=== PATIENT | male | born 1995 | race Two or more races ===

== ENCOUNTER 2016-09-20 12:23 | Emergency (ER) | payer OTHER ==
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
[2016-09-20] MEDS ORDERED: IBUPROFEN 600 MG TAB PO ONE ×2 (12:33→12:45)
[2016-09-20] MEDS ORDERED: HYDROCODONE/APAP 5/325 TAB ONE (12:33)
[2016-09-20 12:45] VITALS: TEMP 98.4
[2016-09-20] MEDS ORDERED: LETS SOLN TOPICAL 1 EA SYR TP ONE (12:45)
[2016-09-20] MEDS ORDERED: HYDROCODONE/APAP 5/325 TAB PO ONE (12:45)
--- NOTE | 2016-09-20 13:13 | DX ---
2 views right clavicle Reason for examination: Pain following trauma. Findings: There is a linear osseous fragment on the superior margin of the distal clavicle consistent with a small avulsion fracture. There is widening of the acromioclavicular joint consistent with a g rade 2 AC separation. Impression: Grade 2 AC separation with associated clavicular avulsion fracture.
--- NOTE | 2016-09-20 13:15 | DX ---
3 Views Right Shoulder. Clinical Indications: Pain following trauma. Findings: The humeral head is normally located in the glenoid fossa. A right clavicular avulsion fra cture is noted. No other fracture is identified. The glenohumeral alignment is normal. Impression: Negative for shoulder fracture. A right clavicular study is reported separately.
[2016-09-20 13:18] VITALS: BP 130/78; PULSE 78; RESP 14; O2SAT 97
== END 2016-09-20 14:08 | disposition home or self-care (01) ==
DX: S43.101A Unspecified dislocation of right acromioclavicular joint, initial encounter (principal); S40.811A Abrasion of right upper arm, initial encounter; S50.811A Abrasion of right forearm, initial encounter; S60.512A Abrasion of left hand, initial encounter; V18.4XXA Pedal cycle driver injured in noncollision transport accident in traffic accident, initial encounter; Y92.410 Unspecified street and highway as the place of occurrence of the external cause; Y93.55 Activity, bike riding
CPT/HCPCS: A4565

== ENCOUNTER 2017-03-03 23:24 | Emergency (ER) | payer OTHER ==
[2017-03-03 23:30] VITALS: BP 121/83; PULSE 87; RESP 16; TEMP 98.2; O2SAT 96
--- NOTE | 2017-03-03 23:48 | EDPHY ---
H & P Stated Complaint: redness and swelling to right foot x4-5 days no trauma HPI/ROS: CHIEF COMPLAINT: Right toe redness and swelling HISTORY OF PRESENT ILLNESS: Patient complains of 4 days history of right toe redness and swelling. It is surrounded the right great toenail at 1st. Discharged to track up the toe. [id number] pain that is worse with palpation and movement. No radiating pain. No swelling of the IP joint. No fever or chills. No numbness or tingling. No weakness. No trauma or injury. He felt that there was an abscess, thus he tried to drain it at home yesterday. No improvement. There has been no drainage of any kind. No history of gout personally or in his family. No alcohol intake. No other associated complaints or modifying factors. REVIEW OF SYSTEMS: Ten systems reviewed and are negative unless otherwise noted in the HPI EXAMINATION General Appearance: Alert, no distress Cardiovascular: Pulses normal throughout. Symmetric DP and PT pulses at 2+. Brisk cap refill Neurological: A&O, sensory symmetric, strength symmetric. Normal proprioception of the great toe. Skin: Warm and dry, no rash. Mild erythema surrounding the right great toenail. There is no palpable fluctuance. No purulence. No appreciable abscess. Extremities: Mild tenderness surrounding the right great toenail. Range of motion is fully intact without limitation. Psychiatric: Mood and affect normal DIFFERENTIAL DIAGNOSES: Including but not limited to cellulitis, paronychia, felon, gout MDM: 11:45 p.m. Superficial cellulitis of the dorsum of the right foot. There is no evidence of gout on examination as the IP joint is spared. There is no palpable fluctuance or drainable abscess at this time. I will put him on Bactrim and Keflex for treatment of the possibility of cellulitis. Would like him to be re- evaluated in 48 hours here or with primary care physician. Return sooner for any worsening symptoms. He is comfortable with this plan. He will be discharged home stable condition. ED Precautions: Worsening pain. Erythema, edema, cyanosis, pallor, paresthesia or anesthesia. SUPERVISION: This patient was independently evaluated without direct examination by the attending physician. Case was discussed with attending physician. Source: Patient Exam Limitations: No limitations - Personal History Current Tetanus Diphtheria and Acellular Pertussis (TDAP): Unsure - Medical/Surgical History Hx Asthma: No Hx Chronic Respiratory Disease: No Hx Diabetes: No Hx Cardiac Disease: No Hx Renal Disease: No Hx Cirrhosis: No Hx Alcoholism: No Hx HIV/AIDS: No Hx Splenectomy or Spleen Trauma: No Other PMH: denies - Social History Smoking Status: Never smoked Constitutional: Initial Vital Signs Temperature (C) 98.2 F 03/03/17 23:28 Heart Rate 87 03/03/17 23:28 Respiratory Rate 16 03/03/17 23:28 Blood Pressure 121/83 H 03/03/17 23:28 O2 Sat (%) 96 03/03/17 23:28 O2 Delivery Mode Room Air Allergies/Adverse Reactions: No Known Allergies Allergy (Unverified 09/20/16 12:36) Home Medications: Medication Instructions Recorded Ibuprofen [Motrin] 800 mg PO Q8 #20 tab 09/20/16 Cephalexin [Keflex (*)] 500 mg PO TID #30 cap 03/03/17 Sulfamethox/Tmp 800/160 mg 2 tab PO BID 10 Days 03/03/17 [Bactrim Ds] Medical Decision Making - Data Points Medications Given: Discontinued Medications Cephalexin (Keflex 500 Mg Prepack#4) 1 btl TAKEHOME EDNOW ONE PRN Reason: Protocol Stop: 03/03/17 23:50 Last Admin: 03/04/17 00:01 Dose: 1 btl Trimethoprim/Sulfamethoxazole (Bactrim Ds) 2 ea PO EDNOW ONE PRN Reason: Protocol Stop: 03/03/17 23:50 Last Admin: 03/04/17 00:01 Dose: 2 ea Departure - Departure Disposition: Home, Routine, Self-Care Clinical Impression: Cellulitis of toe of right foot Condition: Good Instructions: Cephalexin (By mouth), Sulfamethoxazole/Trimethoprim (By mouth), Cellulitis (ED) Additional Instructions: 1. Antibiotics as discussed for 10 days 2. Re-evaluation in 48 hours here or with primary care physician 3. Return to the ER sooner for any worsening symptoms, fever, warmth to the joint Referrals: NONE *PRIMARY CARE P,. [Primary Care Provider] - As per Instructions Dorian Bae DO [Medical Doctor] - As per Instructions Physician,Emergency DeptMD [Medical Doctor] - As per Instructions Prescriptions: Cephalexin [Keflex (*)] 500 mg PO TID #30 cap Sulfamethox/Tmp 800/160 mg [Bactrim Ds] 2 tab PO BID 10 Days
[2017-03-03] MEDS ORDERED: CEPHALEXIN 500MG PREPACK#4 BTL TAKEHOME ONE (23:49)
[2017-03-03] MEDS ORDERED: SULFAMETHOX/TMP 800/160 MG 1 TAB PO ONE (23:49)
== END 2017-03-04 00:09 | disposition home or self-care (01) ==
DX: L03.115 Cellulitis of right lower limb (principal)

== ENCOUNTER 2017-03-05 13:36 | Emergency (ER) | payer OTHER ==
[2017-03-05 13:43] VITALS: RESP 16
--- NOTE | 2017-03-05 15:49 | EDPHY ---
H & P Stated Complaint: Toe still inflammed;has taken 3 daoses of Keflex,none of Bactrim HPI/ROS: Chief complaint: Right great toe infection History of present illness: This is a 21-year-old male who presents to the emergency department for right great toe infection. Patient was seen 2 days ago and diagnosed with an infection. He was started on Keflex and Bactrim. He has been taking the Keflex as prescribed but has not started the Bactrim as of yet. He feels has gotten slightly worse, he is concerned there is something that needs to be drained. He denies other associated signs or symptoms including no redness, swelling or warmth extending up onto the foot, no red streaking up the leg, no abnormal coolness or paresthesias in the toe. - Personal History Current Tetanus Diphtheria and Acellular Pertussis (TDAP): Yes - Medical/Surgical History Hx Asthma: No Hx Chronic Respiratory Disease: No Hx Diabetes: No Hx Cardiac Disease: No Hx Renal Disease: No Hx Cirrhosis: No Hx Alcoholism: No Hx HIV/AIDS: No Hx Splenectomy or Spleen Trauma: No Other PMH: denies - Social History Smoking Status: Never smoked - Physical Exam Exam: General: Alert, nontoxic Skin: Erythema and edema to the dorsum of the right great toe most pronounced around the edge of the nail, no extension up onto the foot, no red streaking up the leg Musculoskeletal: Patient is actively flexing extending his right great toe and I am able to passively flex and extend it without discomfort Vascular: Capillary refill brisk in the right great toe Neurologic: Sensation intact in the right great toe Constitutional: Initial Vital Signs Temperature (C) 36.7 C 03/05/17 13:41 Heart Rate 73 03/05/17 13:41 Respiratory Rate 16 03/05/17 13:41 Blood Pressure 125/88 H 03/05/17 13:41 O2 Sat (%) 96 03/05/17 13:41 O2 Delivery Mode Room Air Allergies/Adverse Reactions: No Known Allergies Allergy (Verified 03/05/17 13:41) Home Medications: Medication Instructions Recorded Ibuprofen [Motrin] 800 mg PO Q8 #20 tab 09/20/16 Cephalexin [Keflex (*)] 500 mg PO TID #30 cap 03/03/17 Sulfamethox/Tmp 800/160 mg 2 tab PO BID 10 Days 03/03/17 [Bactrim Ds] Medical Decision Making Procedures: Procedure: Paronychia drainage. The patient's paronychia was located on the right great toe. I obtained verbal consent from the patient to drain the paronychia who was informed about the possibility of bleeding and pain. The paronychia was incised with a scalpel and a moderate amount of purulent drainage was expressed. I irrigated the wound. The patient tolerated the procedure well. The procedure was performed by myself. ED Course/Re-evaluation: Patient seen under the supervision of my secondary supervising physician Dr. Marino Guzman. Patient presents to the emergency department concerned he has a persistent infection on his right great toe. Does appear to have a paronychia. It is drained successfully. He is asked to continue the Keflex and take his Bactrim as prescribed. Home care is discussed. He is to follow up with his primary care doctor or a weatherseal technician for recheck. Return precautions are given. Patient voiced understanding and agreement with plan. Differential Diagnosis: Included but not limited to cellulitis, paronychia, unlikely tenosynovitis or septic joint Departure - Departure Disposition: Home, Routine, Self-Care Clinical Impression: Paronychia Qualifiers: Laterality: right Qualified Code(s): L03.011 - Cellulitis of right finger Condition: Good Instructions: Paronychia (ED) Additional Instructions: Follow-up with primary care doctor or Podiatry for recheck Take antibiotics as prescribed until finished even feeling better If symptoms worsen or new symptoms develop return to the emergency room for recheck Referrals: NONE *PRIMARY CARE P,. [Primary Care Provider] - As per Instructions Shahzad Meier MD [Doctor of Podiatric Medicine] - As per Instructions [facility] [place],. [Clinic] - As per Instructions
[2017-03-05 15:52] VITALS: BP 112/76; PULSE 81; TEMP 97.7; O2SAT 98
== END 2017-03-05 15:52 | disposition home or self-care (01) ==
PROC: 0H9MXZZ Drainage of Right Foot Skin, External Approach (ICD-10-PCS; principal; 2017-03-05)
DX: L03.031 Cellulitis of right toe (principal)